=== PATIENT | female | born 1955 | race Caucasian/White ===

== ENCOUNTER 2021-01-22 22:05 | Observation (INO) | payer MEDICARE, OTHER ==
[2021-01-22] MEDS ORDERED: Ondansetron ODT 4 MG TAB PO PRN (23:30)
[2021-01-22] MEDS ORDERED: Guaifenesin DM 100-10/5 ML UDCUP PO PRN (23:30)
[2021-01-22] MEDS ORDERED: Acetaminophen 325 MG TAB PO PRN (23:30)
[2021-01-22] MEDS ORDERED: Bisacodyl 10 MG SUPP PR PRN (23:30)
[2021-01-22] MEDS ORDERED: Zolpidem Tartrate 5 MG TAB PO PRN (23:30)
[2021-01-22] MEDS ORDERED: HYDROcodone/Acetaminophen 5/325 mg Tablet PO PRN (23:30)
[2021-01-23 01:05] VITALS: BMI 30.4
[2021-01-23] MEDS ORDERED: hydrALAZINE 20 MG/ML VIAL SLOW IVP PRN (01:28)
[2021-01-23] MEDS ORDERED: hydrALAZINE 20 MG/ML VIAL SLOW IVP SCH (01:30)
[2021-01-23] MEDS ORDERED: Morphine 4 MG/ML VIAL SLOW IVP PRN (01:39)
[2021-01-23] MEDS ORDERED: diphenhydrAMINE 50 MG/ML VIAL IVP SCH (01:45)
[2021-01-23] MEDS ORDERED: Sodium Chloride 0.9% 1,000 ML IV SCH (02:30)
[2021-01-23 02:47] LABS: #Lymphocytes 2.3 thou/uL (1.20-3.40); #Monocytes 0.8 thou/uL (0.11-0.59); #Neutrophils 5.2 thou/uL (1.40-6.50); %Basophils 0.5 % (0.0-1.0); %Eosinophils 0.5 % (0.0-10.0); %Lymphocytes 27.4 % (21.0-51.0); %Monocytes 9.7 % (0.0-10.0); %Neutrophils 61.8 % (42.0-75.0); Hemoglobin 12.6 g/dL (12.0-16.0); Mean Corpuscular HGB CONC 32.9 g/dL (32.0-36.0); Mean Corpuscular Hemoglobin 28.1 pg (27.0-31.0); Mean Corpuscular Volume 85.4 fL (78.0-98.0); Mean Platelet Volume 8.3 fL (7.4-10.4); Platelet Count 182 thou/uL (130-400); Red Blood Cell (RBC) Count 4.47 mill/uL (4.20-5.40); White Blood Cell (WBC) Count 8.4 thou/uL (4.8-10.8)
[2021-01-23 03:10] LABS: Troponin I 0.014 ng/mL (< 0.028)
[2021-01-23 03:11] LABS: Anion Gap 12 mmol/L (10-20); BUN (Urea Nitrogen) 18 mg/dL (9.8-20.1); Calc. Creatinine Clearance 94 mL/min (70-130); Calcium 9.2 mg/dL (7.8-10.44); Carbon Dioxide 24 mmol/L (23-31); Chloride 104 mmol/L (98-107); Glucose 97 mg/dL (80-115); Potassium 3.3 mmol/L (3.5-5.1); Sodium 137 mmol/L (136-145)
[2021-01-23] MEDS ORDERED: predniSONE 5 MG TAB PO SCH (08:00)
[2021-01-23 08:14] VITALS: TEMP 97.9
[2021-01-23] MEDS ORDERED: methylPREDNISolone Sod Succ/PF 125 MG/2 ML VIAL IVP SCH (09:00)
[2021-01-23] MEDS ORDERED: Amlodipine 5 MG TAB PO SCH (09:00)
[2021-01-23] MEDS ORDERED: Enoxaparin Sodium 40 MG/0.4 ML SYRINGE SC SCH (09:00)
[2021-01-23 12:27] VITALS: BP 141/67
== END 2021-01-23 14:49 | disposition home or self-care (01) ==
LOC: 2SW 23:55
PROVIDERS: ADMIT Internal Medicine; ATTEND Internal Medicine
DX: R07.81 Pleurodynia (principal); R06.09 Other forms of dyspnea; M32.9 Systemic lupus erythematosus, unspecified; R79.89 Other specified abnormal findings of blood chemistry; M34.9 Systemic sclerosis, unspecified; M06.9 Rheumatoid arthritis, unspecified; M15.9 Polyosteoarthritis, unspecified; Z79.52 Long term (current) use of systemic steroids; Z79.899 Other long term (current) drug therapy; Z91.041 Radiographic dye allergy status
CPT/HCPCS: 78451; 80048; 84484; 85025; 93005; 96372; 96374; 96375; A9540; G0378; 36415; 93010; J0360; J1650; J2270; J2930; J7512; Q0162

== ENCOUNTER 2021-02-21 14:06 | Outpatient (CLI) | payer MEDICARE, OTHER | END 2021-02-21 14:07 | disposition home or self-care (01) | LOC: BICULT 14:06 | PROVIDERS: ATTEND Otolaryngology Plastic Surgery within the Head & Neck | DX: R59.0 Localized enlarged lymph nodes (principal) | CPT/HCPCS: 76536 ==

== ENCOUNTER 2022-03-11 08:45 | Outpatient (CLI) | payer MEDICARE, OTHER | END 2022-03-11 08:46 | disposition home or self-care (01) | LOC: SCSMRI 08:45 → BICMRI 08:46 | PROVIDERS: ATTEND Psychiatry & Neurology Neurology | DX: R26.81 Unsteadiness on feet (principal); M77.31 Calcaneal spur, right foot | CPT/HCPCS: 70551 ==

== ENCOUNTER 2022-10-31 09:24 | Outpatient (CLI) | payer MEDICARE, OTHER | END 2022-10-31 09:25 | disposition home or self-care (01) | LOC: BICMAMMO 09:24 | PROVIDERS: ATTEND Internal Medicine Rheumatology | DX: M81.0 Age-related osteoporosis without current pathological fracture (principal); R26.81 Unsteadiness on feet | CPT/HCPCS: 77080 ==

== ENCOUNTER 2022-11-20 10:07 | Outpatient (CLI) | payer MEDICARE, OTHER | END 2022-11-20 10:08 | disposition home or self-care (01) | LOC: BICRAD 10:07 | PROVIDERS: ATTEND Internal Medicine Rheumatology | DX: M54.50 Low back pain, unspecified (principal); M47.816 Spondylosis without myelopathy or radiculopathy, lumbar region; M43.16 Spondylolisthesis, lumbar region; M85.88 Other specified disorders of bone density and structure, other site | CPT/HCPCS: 72100 ==

== ENCOUNTER 2024-11-02 08:46 | Outpatient (CLI) | payer MEDICARE, OTHER | END 2024-11-02 08:47 | disposition home or self-care (01) | LOC: BICMAMMO 08:46 | PROVIDERS: ATTEND Internal Medicine Rheumatology | DX: M81.0 Age-related osteoporosis without current pathological fracture (principal); M85.89 Other specified disorders of bone density and structure, multiple sites | CPT/HCPCS: 77080 ==